=== PATIENT | female | born 1945 | race Hispanic/Latino ===

== ENCOUNTER 2017-05-01 06:22 | Day surgery (SDC) | payer MEDICARE ==
[2017-05-01 07:24] LABS: Basophils # (Auto) 0.1 K/mm3 (0.0-0.1); Eosinophils # (Auto) 0.2 K/mm3 (0.0-0.4); Eosinophils % (Auto) 3.1 % (0.0-4.3); Hematocrit 39.9 % (30.3-42.9); Hemoglobin 13.2 gm/dl (10.1-14.3); Lymphocytes # (Auto) 2.8 K/mm3 (1.2-5.4); Lymphocytes % (Auto) 41.7 % (13.4-35.0); Mean Corpuscular HGB Conc 33 % (30-34); Mean Corpuscular Hemoglobin 28 pg (28-32); Mean Corpuscular Volume 84 fl (79-97); Monocytes # (Auto) 0.5 K/mm3 (0.0-0.8); Monocytes % (Auto) 7.7 % (0.0-7.3); Platelet Count 179 K/mm3 (140-440); Red Blood Count 4.75 M/mm3 (3.65-5.03); Red Cell Distribution Width 14.1 % (13.2-15.2)
[2017-05-01 07:32] LABS: Calcium 8.6 mg/dL (8.4-10.2)
[2017-05-01 07:35] LABS: INR 0.9 (0.87-1.13)
[2017-05-01] MEDS ORDERED: NACL 0.9% 500 ML 500 ML IV SCH (08:00)
[2017-05-01] MEDS ORDERED: HEPARIN/NS 5000 UNIT/500ML(CATH LAB) 1,000 ML IR ONE (09:54)
[2017-05-01] MEDS ORDERED: XYLOCAINE 2% INFILTRATI ONE (09:54)
[2017-05-01] MEDS ORDERED: SUBLIMAZE ONE (09:55)
[2017-05-01] MEDS ORDERED: VERSED ONE (09:55)
--- NOTE | 2017-05-01 10:52 | Short Stay Summary ---
Short Stay Documentation Date of service: 05/01/17 - History H&P: obtained from office Past Surgical History: No surgical history Social history: no significant social history - Allergies and Medications Current Medications: Allergies No Known Allergies Allergy (Verified 08/18/14 07:32) Home Medications Medication Instructions Recorded Confirmed Last Taken Type Fenofibrate,Micronized 134 mg PO QHS 07/24/14 05/01/17 04/30/17 History [Fenofibrate] Furosemide 40 mg PO DAILY 07/24/14 05/01/17 04/30/17 History Hydroxyzine HCl [hydrOXYzine] 50 mg PO DAILY 07/24/14 05/01/17 04/30/17 History Ranitidine HCl [Ranitidine 150mg 300 mg PO DAILY 07/24/14 05/01/17 04/30/17 History Cap] buPROPion XL 150 mg PO DAILY 07/24/14 05/01/17 04/30/17 History clonazePAM 1 mg PO QHS 07/24/14 05/01/17 04/30/17 History Lansoprazole (Nf) [Prevacid (Nf)] 30 mg PO DAILY 08/18/14 05/01/17 04/30/17 History AtorvaSTATin [Lipitor] 10 mg PO QHS 03/12/15 05/01/17 04/30/17 History Clopidogrel Bisulfate [Plavix] 75 mg PO QHS 03/12/15 05/01/17 04/30/17 History oxyCODONE /ACETAMINOPHEN [Percocet 1 - 2 tab PO Q6HR PRN #30 tablet 03/13/15 4 Months Ago Rx 5/325 mg] ~12/30/16 Gabapentin [Neurontin] 300 mg PO DAILY 06/27/15 05/01/17 04/30/17 History Latanoprost 0.005% [Xalatan 0.005%] 1 drop OP QPM 06/27/15 05/01/17 04/30/17 History Levothyroxine [Synthroid] 75 mcg PO QAM 06/27/15 05/01/17 04/30/17 History Modafinil [Provigil] 200 mg PO QAM 06/27/15 05/01/17 04/30/17 History Active Medications Sodium Chloride (Nacl 0.9% 500 Ml) 500 mls @ 50 mls/hr IV DIRECT MARTIN Stop: 05/01/17 17:59 Last Admin: 05/01/17 08:03 Dose: 50 mls/hr - Physical exam General appearance: no acute distress Integumentary: no rash HEENT: Atraumatic Lungs: Clear to auscultation Breasts: deferred Heart: Regular rate Gastrointestinal: normal Female Genitourinary: deferred Rectal Exam: deferred Extremities: no ischemia Neurological: Normal gait - Brief post op/procedure progress note Date of procedure: 05/01/17 Pre-op diagnosis: Pulmonary Hypertension Post-op diagnosis: same Procedure: RHC Anesthesia: MAC Findings: See report Surgeon: BRIANA REEN Estimated blood loss: none Pathology: none Condition: stable - Hospital course Hospital course: Uneventful - Disposition Condition at discharge: Good Disposition: DC-01 TO HOME OR SELFCARE Short Stay Discharge Plan Activity: advance as tolerated Weight Bearing Status: Weight Bear as Tolerated Diet: low fat, low cholesterol, low salt Follow up with: LORETTA ÁLVAREZ MD [Primary Care Provider] - 7 Days
--- NOTE | 2017-05-01 12:22 | Cardiac Catherization Report ---
RIGHT HEART CATHETERIZATION INDICATION FOR PROCEDURE: Pulmonary arterial hypertension, assess response to medical therapy. PROCEDURES PERFORMED: Right heart catheterization with hemodynamic measurement and oxygen saturation measurements. DESCRIPTION OF PROCEDURE: After obtaining the consent, the patient was draped using sterile technique. A 2% lidocaine was injected into the right antecubital area. A 6-Peruvian vascular sheath was inserted over a previously placed intravenous line. A 6-[place] catheter was then floated using a BMW wire and positioned into the left pulmonary artery. No complications occurred during the procedure. Hemostasis was achieved at the end of the procedure using manual pressure. SPECIMEN REMOVED: None. ESTIMATED BLOOD LOSS: Minimal. Physician/patient [id number] sedation time was 10:20 a.m. and physician/patient lhge-[id number] sedation stop time was 10:34 a.m. Total sedation time was 14 minutes. FINDINGS: 1. The mean pulmonary capillary wedge pressure is 18 mmHg. 2. The mean pulmonary artery pressure was 24 mmHg. 3. The right ventricular systolic pressure was 38 mmHg. 4. Right ventricular end-diastolic pressure was 15 mmHg. 5. Mean right arterial pressure was 15 mmHg. 6. Aortic saturation was 95%. 7. Pulmonary artery saturation was 73%. 8. Cardiac output was 6.6 liters per minute. 9. Cardiac index was 3.37 liters per minute per m2. IMPRESSION: Significant improvement in the pulmonary artery pressures noted when compared to the previous right heart catheterization performed 06/27/2015. Mean pulmonary artery pressure improved from 30 mmHg to 24 mmHg, right ventricular systolic pressure improved from 44-38 mmHg and mean right atrial pressure improved from 17-15 mmHg. Transpulmonary gradient is now 6 mmHg and the pulmonary vascular resistance was less than 1 Guzman units. RECOMMENDATIONS: 1. Continue current management. 2. Follow up with referring appliquer zigzag. JOB# [id number] HERACLIO/KEVIN
[2017-05-01 12:33] VITALS: BP 101/50
== END 2017-05-01 12:55 | disposition home or self-care (01) ==
LOC: CATHLABREC 06:22
PROVIDERS: ATTEND Internal Medicine
DX: I27.20 Pulmonary hypertension, unspecified (principal); I10 Essential (primary) hypertension; E03.9 Hypothyroidism, unspecified; M19.90 Unspecified osteoarthritis, unspecified site; E78.00 Pure hypercholesterolemia, unspecified; K21.9 Gastro-esophageal reflux disease without esophagitis; F41.9 Anxiety disorder, unspecified; Z79.01 Long term (current) use of anticoagulants
CPT/HCPCS: 36415; 80048; 85025; 85610; 85730; 93005; 93010; 93451; C1769; C1894; J1644; J2250; J3010; J7040